=== PATIENT | female | born 1955 | race Caucasian/White ===

== ENCOUNTER 2017-05-16 21:39 | Inpatient (IN) ==
[2017-05-16] MEDS ORDERED: IOPAMIDOL 100 ML BOTTLE IV ONE (21:40)
[2017-05-16] MEDS ORDERED: 0.9 % SODIUM CHLORIDE 2,000 ML IV ONE (22:08)
[2017-05-16] MEDS ORDERED: ONDANSETRON 4 MG/2 ML VIAL IV ONE (22:08)
[2017-05-16 22:54] LABS: Basophils # (Auto) 0 K/mcL (0.0-0.3); Basophils % (Auto) 0.2 % (0.0-2.0); Eosinophils # (Auto) 0.1 K/mcL (0.0-0.7); Eosinophils % (Auto) 2.4 % (0.0-7.0); Granulocytes % (Auto) 14.9 % (38.0-78.0); Lymphocytes # (Auto) 2.5 K/mcL (1.5-4.8); Lymphocytes % (Auto) 67.1 % (15.5-49.0); Mean Corpuscular HGB Conc 33.9 g/dL (31.0-36.0); Mean Corpuscular Hemoglobin 28.9 pg (26.0-34.0); Monocytes # (Auto) 0.6 K/mcL (0.1-0.9); Monocytes % (Auto) 15.4 % (1.0-12.0); Platelet Count 226 K/mcL (140-440); RBC 5.08 M/mcL (4.00-5.20); Red Cell Distribution Width 12.8 % (11.5-14.5)
[2017-05-16 23:09] LABS: ALT/SGPT 12 U/l (0-40); Albumin/Globulin Ratio 1.1 (1.0-2.3); Alkaline Phosphatase 77 U/L (39-117); Amylase 82 U/L (28-100); Blood Urea Nitrogen 13 mg/dl (8-23); Lipase 87 U/L (7-60)
--- NOTE | 2017-05-16 23:29 | Emergency Department Note ---
General Adult HPI - General Chief complaint: Cold/Flu Symptoms Stated complaint: body aches, diarrhea and malaise Time Seen by Provider: 05/16/17 21:49 Source: patient Mode of arrival: ambulatory Limitations: no limitations - History of Present Illness HPI Narrative: 61-year-old female comes in [facility] from being ill over the last month. She reports that she has been sick with worsening diarrhea for the last 4 days along with nausea and vomiting. She feels weak diet dehydrated but is able to urinate some small amount. She notes a fever today which she took Excedrin. The temperature was 101.9. She feels achy and tired all over. Denies any rashes pedal edema shortness of breath. It is noted that she came in the ER on 04/27/2017 and was prescribed Ceftin and azithromycin for pneumonia and UTI. She states that she did not get better after that but instead got worse and developed this diarrhea-watery stool multiple episodes all night last night. - Related Data Home Medications Medication Instructions Recorded Confirmed cholecalciferol (vitamin D3) 1,000 1,000 unit PO QDAY cap 05/06/17 05/16/17 unit capsule cyanocobalamin (vit B-12) 1,000 1,000 mcg IM QMONTH 05/06/17 05/16/17 mcg/mL injection solution Previous Rx's Medication Instructions Recorded levothyroxine 100 mcg capsule 100 mcg PO QDAY #30 cap 05/06/17 lisinopril 2.5 mg tablet 2.5 mg PO QDAY #30 tab 05/06/17 Allergies Allergy/AdvReac Type Severity Reaction Status Date / Time ciprofloxacin [From Cipro] AdvReac Severe Nausea Verified 05/16/17 21:43 Review of Systems All systems ED: reviewed and negative except as stated. Past Medical History - Past Medical History Attestation: Yes: The following information was validated with the patient. Medical history: Reports: hypertension, obesity, thyroid disease, other (B12 deficiency, diverticulitis) Surgical history ED: Reports: hysterectomy, other (LAP-BAND; perforated colon with exploratory laparotomy; lithotripsy; carpal tunnel) - Social History smoking status: Former smoker Physical Exam Overweight female tearful in some acute distress secondary to her health condition. Normocephalic atraumatic. Conjunctive are clear sclerae nonicteric. No nasal discharge but some audible congestion. Oropharynx with dry buccal mucosa. Neck is supple without lymphadenopathy or thyromegaly. No carotid bruit. Heart is regular rate and rhythm no murmur appreciated. Lungs clear to auscultation bilaterally without wheezes rales rhonchi or respiratory distress. However she does have a productive cough occasionally. Abdomen is soft diffusely tender but no point tenderness rigidity peritoneal signs or guarding. Active bowel sounds. No pedal edema. +2 radial pulse. Alert oriented able to answer questions appropriately. Depressed mood Limitations: no limitations Course Vital Signs Temperature 99.5 F H 05/16/17 21:39 Pulse Rate 80 05/16/17 21:39 Respiratory Rate 16 05/16/17 21:39 Blood Pressure 122/79 05/16/17 21:39 Pulse Oximetry (%) 96 05/16/17 21:39 Temperature 99.5 F H 05/16/17 21:39 Pulse Rate 78 05/17/17 01:19 Respiratory Rate 16 05/16/17 21:39 Blood Pressure 93/63 05/17/17 01:01 Pulse Oximetry (%) 93 05/17/17 01:19 Medical Decision Making - Medical Records Medical records reviewed: Yes I reviewed the patient's medical records. - Lab Data Lab results reviewed: Yes I reviewed the patient's lab results. Result diagrams: 05/16/17 22:15 05/16/17 22:15 Lab Results 05/16/17 05/16/17 05/16/17 Range/Units 22:15 22:15 22:15 WBC 3.8 L (4.5-11.0) K/mcL RBC 5.08 (4.00-5.20) M/mcL Hgb 14.7 (12.0-15.0) g/dL Hct 43.2 (36.0-48.0) % POC Hct 42.0 (36.0-48.0) % MCV 85.0 (80.0-100.0) fL MCH 28.9 (26.0-34.0) pg MCHC 33.9 (31.0-36.0) g/dL RDW 12.8 (11.5-14.5) % Plt Count 226 (140-440) K/mcL MPV 8.4 (7.4-10.4) fL Gran % 14.9 L (38.0-78.0) % Lymph % (Auto) 67.1 H (15.5-49.0) % [place] % (Auto) 15.4 H (1.0-12.0) % Eos % (Auto) 2.4 (0.0-7.0) % Baso % (Auto) 0.2 (0.0-2.0) % Gran # 0.6 L* (1.8-8.0) K/mcL Lymph # (Auto) 2.5 (1.5-4.8) K/mcL [place] # (Auto) 0.6 (0.1-0.9) K/mcL Eos # (Auto) 0.1 (0.0-0.7) K/mcL Baso # (Auto) 0 (0.0-0.3) K/mcL VBG Lactic Acid 0.6 (0.5-2.2) mmol/L POC Sodium 143 (133-145) mmol/L Sodium 136 (133-145) mmol/L POC Potassium 3.8 (3.3-5.1) mmol/L Potassium 3.9 (3.3-5.1) mmol/L POC Chloride 102 (96-108) mmol/L Chloride 98 (96-108) mmol/L Carbon Dioxide 24 (22-30) mmol/L POC Total CO2 25 (22-30) mmol/L Anion Gap 14.0 (8-16) POC BUN 14 (8-23) mg/dl BUN 13 (8-23) mg/dl Creatinine 0.8 (0.6-1.1) mg/dl POC Creatinine 0.8 (0.6-1.1) mg/dl GFR Calculation 78 Glucose 94 (70-105) mg/dL POC Glucose 94 (70-105) mg/dL Calcium 9.0 (8.6-10.4) mg/dl POC WB Ioniz Calcium 1.15 L (1.16-1.32) mmol/L Total Bilirubin 0.3 (0.0-1.0) mg/dL AST 22 (0-37) U/l ALT 12 (0-40) U/l Alkaline Phosphatase 77 (39-117) U/L Total Protein 7.6 (5.9-8.4) gm/dL Albumin 4.0 (3.2-5.2) gm/dL Globulin 3.6 (2.2-3.7) gm/dL Albumin/Globulin Ratio 1.1 (1.0-2.3) Amylase 82 (28-100) U/L Lipase 87 H (7-60) U/L Influenza A (Rapid) Influenza B (Rapid) 05/16/17 Range/Units 22:20 WBC (4.5-11.0) K/mcL RBC (4.00-5.20) M/mcL Hgb (12.0-15.0) g/dL Hct (36.0-48.0) % POC Hct (36.0-48.0) % MCV (80.0-100.0) fL MCH (26.0-34.0) pg MCHC (31.0-36.0) g/dL RDW (11.5-14.5) % Plt Count (140-440) K/mcL MPV (7.4-10.4) fL Gran % (38.0-78.0) % Lymph % (Auto) (15.5-49.0) % [place] % (Auto) (1.0-12.0) % Eos % (Auto) (0.0-7.0) % Baso % (Auto) (0.0-2.0) % Gran # (1.8-8.0) K/mcL Lymph # (Auto) (1.5-4.8) K/mcL [place] # (Auto) (0.1-0.9) K/mcL Eos # (Auto) (0.0-0.7) K/mcL Baso # (Auto) (0.0-0.3) K/mcL VBG Lactic Acid (0.5-2.2) mmol/L POC Sodium (133-145) mmol/L Sodium (133-145) mmol/L POC Potassium (3.3-5.1) mmol/L Potassium (3.3-5.1) mmol/L POC Chloride (96-108) mmol/L Chloride (96-108) mmol/L Carbon Dioxide (22-30) mmol/L POC Total CO2 (22-30) mmol/L Anion Gap (8-16) POC BUN (8-23) mg/dl BUN (8-23) mg/dl Creatinine (0.6-1.1) mg/dl POC Creatinine (0.6-1.1) mg/dl GFR Calculation Glucose (70-105) mg/dL POC Glucose (70-105) mg/dL Calcium (8.6-10.4) mg/dl POC WB Ioniz Calcium (1.16-1.32) mmol/L Total Bilirubin (0.0-1.0) mg/dL AST (0-37) U/l ALT (0-40) U/l Alkaline Phosphatase (39-117) U/L Total Protein (5.9-8.4) gm/dL Albumin (3.2-5.2) gm/dL Globulin (2.2-3.7) gm/dL Albumin/Globulin Ratio (1.0-2.3) Amylase (28-100) U/L Lipase (7-60) U/L Influenza A (Rapid) Presumed negative Influenza B (Rapid) Presumed negative Urinalysis [id number] dipstick shows specific gravity 1.030 otherwise normal - Radiology Data Radiology results reviewed: Yes I reviewed the patient's radiology results. 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 X-ray of the abdomen and chest are ordered along with labs and a flu swab. Urinalysis shows concentrated urine but no evidence of infection X-rays are unrevealing but laboratory shows neutropenia. Flu swabs are negative. I discussed the neutropenia with Dr. Coleman, oncologist special education secretary. He advised me to search for the source of the fever and go ahead and treat with antibiotics because of the neutropenia-started Zosyn. CT scan of the abdomen pelvis is ordered She was able to give us a stool sample -watery diarrhea -so C. difficile testing is ordered CT scan of the abdomen and pelvis with contrast shows an intact lap band, marked esophagitis, likely colitis and splenomegaly. There is a small pulmonary nodule that will require follow-up as well. She received 2 L IV normal saline fluid and third was ordered. I did order a dose of IV Protonix for the esophagitis Because of the patient's neutropenia and fever she is at high risk of sepsis; further complicating is her nausea vomiting and diarrhea which are requiring IV fluids and Zofran, so she requires inpatient care with IV antibiotics and medicine. I discussed the case with Dr. Gong, hospitalist, he agreed to accept the patient for further inpatient care. C. difficile is pending Disposition: Xfer As Inpt ([facility]) Condition: Serious Referrals: Wilfred Ferguson PA-C [Primary Care Provider] -
[2017-05-16] MEDS ORDERED: PIPERACILLIN SODIUM/TAZOBACTAM 3.375 GM in DEXTROSE 5% IN WATER 50 ML IV ONE (23:33)
[2017-05-17] MEDS ORDERED: 0.9 % SODIUM CHLORIDE 1,000 ML IV ONE ×5 (01:13→03:01)
[2017-05-17] MEDS ORDERED: PANTOPRAZOLE 40 MG VIAL IV ONE (01:39)
[2017-05-17] MEDS ORDERED: PIPERACILLIN SODIUM/TAZOBACTAM 3.375 GM in DEXTROSE 5% IN WATER 50 ML IV SCH (03:00)
[2017-05-17] MEDS ORDERED: DEXTROSE 5%-LR W/20MEQ KCL 1,000 ML IV SCH (03:00)
[2017-05-17] MEDS ORDERED: NALOXONE HCL 0.4 MG/ML VIAL IV PRN (03:01)
[2017-05-17] MEDS ORDERED: oxyCODONE HCL 5 MG TABLET PO PRN (03:01)
[2017-05-17] MEDS ORDERED: ONDANSETRON 4 MG/2 ML VIAL IV PRN (03:01)
[2017-05-17] MEDS: DEXTROSE 5%-LR W/20MEQ KCL 1,000 ML IV SCH ×4 (05:17→19:18)
[2017-05-17] MEDS: 0.9 % SODIUM CHLORIDE 10 ML SYRINGE IV SCH ×3 (05:19→21:43)
[2017-05-17 05:52] LABS: ALT/SGPT 11 U/l (0-40); Albumin 3.2 gm/dL (3.2-5.2); Albumin/Globulin Ratio 1.2 (1.0-2.3); Alkaline Phosphatase 69 U/L (39-117); Bilirubin,Direct < 0.2 mg/dL (0.0-0.3); Blood Urea Nitrogen 11 mg/dl (8-23); C-Reactive Protein 0.6 mg/dl (0.0-0.8); Gamma Glutamyl Transpeptidase 18 U/L (5-36); Uric Acid 4.9 mg/dL (2.5-8.0)
[2017-05-17 06:07] LABS: Vitamin B12 453.3 pg/ml (232-1245)
[2017-05-17 06:30] LABS: Basophils # (Auto) 0 K/mcL (0.0-0.3); Basophils % (Auto) 0.2 % (0.0-2.0); Eosinophils # (Auto) 0.1 K/mcL (0.0-0.7); Eosinophils % (Auto) 2.5 % (0.0-7.0); Granulocytes % (Auto) 17.8 % (38.0-78.0); Lymphocytes # (Auto) 2.4 K/mcL (1.5-4.8); Lymphocytes % (Auto) 68.5 % (15.5-49.0); Mean Cell Volume 86.8 fL (80.0-100.0); Mean Corpuscular HGB Conc 33.9 g/dL (31.0-36.0); Mean Corpuscular Hemoglobin 29.4 pg (26.0-34.0); Monocytes # (Auto) 0.4 K/mcL (0.1-0.9); Platelet Count 159 K/mcL (140-440); RBC 4.07 M/mcL (4.00-5.20); Red Cell Distribution Width 13.5 % (11.5-14.5)
[2017-05-17 07:10] LABS: Erythrocyte Sedimentation Rate 19 mm/hr (0-20)
--- NOTE | 2017-05-17 08:09 | XRay Report ---
HISTORY: Reason for Exam: diarrhea, n/v FINDINGS: Patient has a gastric band at the level of the gastroesophageal junction. There is an infusion port in the midline of the abdomen. The bowel gas pattern is normal without evidence of obstruction or ileus. No free intra-abdominal air is present. Hiatus hernia is present. There is arthritis in the lower lumbar spine. Several old healed bilateral rib fractures are present. IMPRESSION: Normal exam Interpreted and Authenticated by: Padilla Patino 05/17/17
--- NOTE | 2017-05-17 08:11 | XRay Report ---
HISTORY: Reason for Exam:fever FINDINGS: There is a thin band of scar or discoid atelectasis in the inferior segment of lingula. There is no evidence of pneumonia, mass, congestive heart failure or pleural effusion. The heart size is normal. A hiatus hernia is present which contains a small air-fluid level. IMPRESSION: Scar versus discoid atelectasis at the left lung base and no evidence of pneumonia Interpreted and Authenticated by: Padilla Patino 05/17/17
--- NOTE | 2017-05-17 08:27 | Cat Scan Report ---
CLINICAL INFORMATION: Reason for Exam:nausea vomiting diarrhea, fever, neutropenia COMPARISON: 12/11/10 TECHNIQUE: Following injection of intravenous contrast the patient was scanned during the portal venous phase from the diaphragm through the symphysis pubis. Sagittal and coronal reformats were created.. FINDINGS: The lateral basal segment right lower lobe there is a 6.5 mm pulmonary nodule. This has not enlarged since 12/11/10 and is most likely a granuloma. There are linear bands of scar tissue in the medial basal segment right lower lobe. There is a gastric band at the level of the cardia of the stomach. Above the band and within the lower thorax there is a distended segment of bowel which is either a hiatus hernia or a abnormally dilated esophagus. Within the lumen of this distended segment of bowel there is a complex liquefied material. Some of it has high attenuation. It has higher density than the contrast in the aorta and is therefore more likely radiopaque ingested material rather than actively extravasating blood. The wall of this abnormal segment of esophagus or hiatus hernia of the stomach measures up to 9 mm in thickness. There is no hemorrhage or inflammation in the adjacent posterior mediastinum.. In the right lobe of the liver there is a 5 x 6 mm low-attenuation structure with a similar appearing 4 mm low-attenuation structure beneath the capsule anteriorly in the lateral segment of the left lobe. These are probably small cysts with partial volume averaging. The one in the left lobe was present in 2010. The gallbladder is partially contracted. The bile ducts are nondilated. The spleen is within upper limits of normal in size and is homogeneous. There is no evidence of mass or inflammation in the pancreas. The adrenals are normal. A 1 mm nonobstructing calyceal stone is present in the middle third of the right kidney. There is another 1 mm calyceal stone in the middle third of left kidney. A 1.7 cm exophytic simple cyst is seen anteriorly in the posterior to the left kidney. There is no evidence of renal mass or hydronephrosis on either side. There are multiple diverticula in the descending and sigmoid colon. There is no acute diverticulitis. The wall of the colon at the level of the diverticula is uniformly mildly thickened. Small bowel pattern is normal. The appendix is noninflamed. The uterus and ovaries are surgically absent. Urinary bladder is decompressed. There is degenerative disc disease and arthritis at several levels in the thoracic and lumbar spine. The greatest degeneration is at L5-S1. There is an old mild compression fracture involving the superior endplate of L2. IMPRESSION: Diverticulosis of the descending and sigmoid colon but without acute diverticulitis or bowel obstruction. Hiatus hernia versus abnormally dilated distal esophagus. The wall of this segment of bowel is abnormally thickened, measuring up to 9 mm. This could be due to inflammation or tumor. Endoscopy be helpful for further workup. Interpreted and Authenticated by: Padilla Patino 05/17/17
[2017-05-17] MEDS: HEPARIN 5,000 UNIT/ML VIAL SQ SCH ×2 (08:54→21:43)
[2017-05-17] MEDS: FAMOTIDINE/PF 20 MG/2 ML VIAL IV SCH ×2 (08:54→19:18)
[2017-05-17 09:21] LABS: Complement C3 72.2 mg/dl (90-180)
[2017-05-17] MEDS: ACETAMINOPHEN 325 MG TABLET PO PRN ×2 (11:47→21:11)
[2017-05-17] MEDS: PIPERACILLIN SODIUM/TAZOBACTAM 3.375 GM in DEXTROSE 5% IN WATER 50 ML IV SCH ×2 (11:47→17:58)
--- NOTE | 2017-05-17 14:27 | Internal Medicine Consult Note ---
Medical - CN: HPI - Data of Consult Patient: new to practice Consult date: 05/17/17 Requesting Physician: Fili Gong Primary Care Provider: Wilfred Ferguson Family Provider: Alec Hall - Consult Narrative Reason for consult: nausea, vomiting, diarrhea History of present illness: Ms. Maldonado is a 61 year old F with a remote history of lap band who presents for evaluation of malaise, myalgias, fatigue and diarrhea. In late March, she developed fatigue, malaise, myalgias and headache, which she treated with Excedrin. She felt so ill that she ultimately presented to the ER and was treated for PNA and UTI with azithromycin and Ceftin without any improvement. She developed intermittent diarrhea, which has significantly worsened over the last 4 days, now having up to 24 liquid BMs day with nocturnal stooling and fecal incontinence. C difficile assay returned negative. ANC 600. She has been using Excedrin for mylagias. She underwent lap band [address] Fulton and lost 180lbs, which she has maintained. She typically has dysphagia with eating solids and vomits up the bolus most of the time. She finds drinking a carbonated beverage helpful. Despite her symptoms, her weight has remained stable. She is said to have B12 deficiency and was on injections but discontinued these several years ago after losing her PCP. CC: Fili Gong - Gastrointestinal Gastrointestinal: Present: as per HPI Medical - CN: PMH Medical history: Hypertension, hypothyroidism, kidney stones Surgical history: hysterectomy, lap band, perforated colon with exploratory laparotomy, carpal tunnel release, lithotripsy. Social history: , retired. Use to live in the [facility] and relocated to [place]. Was unable to reestablish care with PCP when she moved back. Smoking status: Former smoker Alcohol use: none Medical - CN: Meds Home Medications Medication Instructions Recorded Confirmed Type cholecalciferol (vitamin D3) 1,000 1,000 unit PO QDAY cap 05/06/17 05/17/17 History unit capsule cyanocobalamin (vit B-12) 1,000 1,000 mcg IM QMONTH 05/06/17 05/17/17 History mcg/mL injection solution levothyroxine 100 mcg capsule 100 mcg PO QDAY #30 cap 05/06/17 05/17/17 Rx lisinopril 2.5 mg tablet 2.5 mg PO QDAY #30 tab 05/06/17 05/17/17 Rx Allergies Allergy/AdvReac Type Severity Reaction Status Date / Time ciprofloxacin [From Cipro] AdvReac Severe Nausea Verified 05/16/17 21:43 Medical - CN: Exam - Constitutional Vitals: Temp Pulse Resp BP Pulse Ox 98.3 F 66 20 105/67 92 05/17/17 12:00 05/17/17 12:00 05/17/17 12:00 05/17/17 12:00 05/17/17 12:00 General appearance: average body habitus, cooperative, no acute distress - Head Head exam: Present: atraumatic, normal inspection - Neck Neck exam: Absent: lymphadenopathy, thyromegaly - Respiratory Respiratory exam: Present: normal respiratory exam, CTAB. Absent: accessory muscle use - Cardiovascular Cardiovascular exam: Present: normal rate and rhythm, RRR. Absent: systolic murmur - GI/Abdominal GI/Abdominal exam: Present: normal bowel sounds, soft. Absent: hernia, mass, organomegaly, tenderness - Neurological Exam Neurological exam: Present: alert, oriented X3 - Psychiatric Psychiatric exam: Present: normal affect, normal mood Additional comments: a little tearful when describing symptoms Medical - CN: Result - Labs CBC & Chem 7: 05/17/17 03:20 05/17/17 03:20 Labs: Short CBC 05/16/17 05/17/17 Range/Units 22:15 03:20 WBC 3.8 L 3.5 L (4.5-11.0) K/mcL Hgb 14.7 12.0 (12.0-15.0) g/dL Hct 43.2 35.3 L (36.0-48.0) % Plt Count 226 159 (140-440) K/mcL BMP 05/16/17 05/17/17 22:15 03:20 Sodium 136 139 Potassium 3.9 3.8 Chloride 98 107 Carbon Dioxide 24 24 BUN 13 11 Creatinine 0.8 0.6 Glucose 94 83 Calcium 9.0 7.5 L Liver Function 05/16/17 05/17/17 Range/Units 22:15 03:20 Total Bilirubin 0.3 0.2 (0.0-1.0) mg/dL Direct Bilirubin < 0.2 (0.0-0.3) mg/dL GGT 18 (5-36) U/L AST 22 18 (0-37) U/l ALT 12 11 (0-40) U/l Alkaline Phosphatase 77 69 (39-117) U/L Albumin 4.0 3.2 (3.2-5.2) gm/dL Medical - CN: A/P (1) Nausea vomiting and diarrhea Status: Chronic Assessment and plan: CT revealed an abnormal esophagus with possible hiatal hernia vs dilated esophagus, which contained food. Thickening of the descending colon and sigmoid colon were also seen on CT. C. difficile was negative. Crohn's would be a unifying diagnoses. Infectious colitis is a possibility as is reflux esophagitis from frequent vomiting. We will proceed with EGD and colonoscopy. Pt will be given a low volume prep as she is unlikely to be able to tolerate 4L [place] with her lap band.
--- NOTE | 2017-05-17 17:57 | Internal Med History&Physical ---
Medical - H&P: HPI Patient information: Note initiated : 05/17/17 at 5:55 pm Service Date, if different from initiated Date: [] Patient: Alice Maldonado 61 y/o F admitted on 05/17/17 for body aches, diarrhea and malaise. Chief Complaint: [] History of present illness: Ms. Maldonado is a 61 year old Female with h/o lap band over 10 yrs ago, presented to the ER with complaints of not feeling well, nausea, vomiting, diarrhea fever for the last 3 weeks, The patient had been visiting the [facility] where she started developing the symptoms initially. Started with cough, fever, fatigue, malaise, not wanting to eat or drink much. She had presented to the emergency room here at [facility] later on 27 of April, I believe she was diagnosed as having the urinary tract infection as well as a pneumonia. The patient was given Ceftin and azithromycin. The patient notes that her symptoms improved her a couple of days somewhat and then she began to feel the symptoms back up again. She notes extreme tiredness, nausea, vomiting, inability to tolerate by mouth, and diarrhea, severe watery, not sure that is some blood in there. No mucous. Abdomen is sore. Does not complain of any specific location of abdominal pain. The patient notes that she has been febrile over the last day or 2 and therefore presented to the emergency room for further evaluation. In the ER, the patient was noted to be febrile 99.2, dehydrated, her labs showed neutropenia with an absolute neutrophil count of 600. The rest of the lab work was unremarkable. Patient underwent a CT scan of the abdomen and pelvis which showed some thickening of the distal esophageal region, questionable and possible colitis. An enteritis. The patient had headache and dizziness, no changes in visual symptoms, no hearing issues, no difficulty in swallowing, she does have chronic nausea related to her gastric banding procedure. The patient denies any urinary complaints, denies any skin rashes or joint pains. Denies any psychiatric complaints. Given that the patient had significant neutropenia, fever, and possible enteritis-like picture. She was admitted to the hospital for further management. The patient's lab work remained unchanged, her HIV is negative, her pathology review of smear is negative for any blast cells, a C3 and C4 levels are low, but in his screen is negative. Asuncion-Montano while this is pending. GI was consulted for evaluation of thickening of the lower part of the esophagus as well as possible colitis. They plan to do an EGD scope. He possibly colonoscopy. All systems: reviewed and no additional remarkable complaints except as stated ( as per HPI) Medical - H&P: PMH Medical history: Medical History (Last Updated 05/17/17 @ 10:02 by Umm Montes) History of tobacco use (Chronic) Bowel disease (Chronic) Thyroid disease (Chronic) Osteoporosis (Chronic) Liver disease (Chronic) Kidney stones (Chronic) Hypertension, essential (Chronic) Heart trouble (Chronic 04/22/17) Lung disorder (Chronic) Arthritis (Chronic) Acid reflux (Chronic) Surgical history: Past Surgical History (Last Updated 05/17/17 @ 09:53 by Umm Montes) H/O colonoscopy (Chronic) H/O lithotripsy (Chronic) H/O: hysterectomy (Chronic) Hx of tonsillectomy (Chronic) Status post gastric banding surgery (Chronic) Pertinent family history: Family History (Last Updated 05/17/17 @ 09:56 by Umm Montes) Other No pertinent family history Medical - H&P: Meds Home Medications Medication Instructions Recorded Confirmed Type cholecalciferol (vitamin D3) 1,000 1,000 unit PO QDAY cap 05/06/17 05/17/17 History unit capsule cyanocobalamin (vit B-12) 1,000 1,000 mcg IM QMONTH 05/06/17 05/17/17 History mcg/mL injection solution levothyroxine 100 mcg capsule 100 mcg PO QDAY #30 cap 05/06/17 05/17/17 Rx lisinopril 2.5 mg tablet 2.5 mg PO QDAY #30 tab 05/06/17 05/17/17 Rx Allergies Allergy/AdvReac Type Severity Reaction Status Date / Time ciprofloxacin [From Cipro] AdvReac Severe Nausea Verified 05/16/17 21:43 Medical - H&P: Exam - Constitutional Vitals: Temp Pulse Resp BP Pulse Ox 98.3 F 66 20 105/67 92 05/17/17 12:00 05/17/17 12:00 05/17/17 12:00 05/17/17 12:00 05/17/17 12:00 Exam: GENERAL: The patient is a well-developed, well-nourished in no apparent distress. Is alert and oriented x3. VITAL SIGNS: Reviewed and as noted elsewhere. HEENT: Head is normocephalic and atraumatic. Extraocular muscles are intact. Pupils are equal, round, and reactive to light. Nares appeared normal. Mouth appears any without lesions. Mucous membranes are dry NECK: Normal to inspection, Supple, No lymphadenopathy or thyromegaly. LUNGS: Air entry equal on both sides, no wheezing, crackles or rhonchi noted. No accessory muscles of respiration HEART: Regular rate and rhythm normal, S1 and S2 heard, no Gallop, S3 or Rub Noted, No Gross murmur heard. ABDOMEN: Soft, nontender, and nondistended. Positive bowel sounds. No hepatosplenomegaly was noted. EXTREMITIES: No cyanosis, clubbing, rash, lesions or edema. NEUROLOGIC: Cranial nerves II through XII are grossly intact. Motor and Sensory System Grossly Intact PSYCHIATRIC: Normal affect, Normal Mood. Appropriate Behavior. SKIN: No ulceration or wounds noted, No jaundice, No rash noted. Medical - H&P: Reslt - Labs CBC & Chem 7: 05/17/17 03:20 05/17/17 03:20 Labs: Short CBC 05/16/17 05/17/17 Range/Units 22:15 03:20 WBC 3.8 L 3.5 L (4.5-11.0) K/mcL Hgb 14.7 12.0 (12.0-15.0) g/dL Hct 43.2 35.3 L (36.0-48.0) % Plt Count 226 159 (140-440) K/mcL BMP 05/16/17 05/17/17 22:15 03:20 Sodium 136 139 Potassium 3.9 3.8 Chloride 98 107 Carbon Dioxide 24 24 BUN 13 11 Creatinine 0.8 0.6 Glucose 94 83 Calcium 9.0 7.5 L Liver Function 05/16/17 05/17/17 Range/Units 22:15 03:20 Total Bilirubin 0.3 0.2 (0.0-1.0) mg/dL Direct Bilirubin < 0.2 (0.0-0.3) mg/dL GGT 18 (5-36) U/L AST 22 18 (0-37) U/l ALT 12 11 (0-40) U/l Alkaline Phosphatase 77 69 (39-117) U/L Albumin 4.0 3.2 (3.2-5.2) gm/dL Medical - H&P: A/P - Narrative A/P Narrative: A/P Neutropenia: etiology of neutropenia is uncertain at this point, workup for nutritional deficiencies like B12, and folate is negative, TSH is negative, HIV is negative. Asuncion-Montano virus is pending. low C3 and low C4, raised a concern about possible lupus. However SILVER is negative and patient does not have any other rheumatological feature,the patient has normal ESR and CRP. At this pointit's likely that this is related to some viral illness as the patient' s ANC count was normal. 3 weeks ago. We will monitor closely for now. We'll consult hematology if patient continues to drop his counts. it's very likely that the patient had an adverse drug reaction resulting in neutropenia, since the patient was given a cephalosporin as well as an azithromycin, both of which can potentially cause neutropenia, its difficult to know which. Will monitor for now. Enteritis-likely viral enteritis, patient denies any history that would suggest for poisoning and I would not expect food poisoning to last this long. viral enteritis. Also should not be expected to last this long. I'm hoping that the colonoscopy, EGD scope. He will shed some light. Appreciate GI input. Cdiff was neative. Patient is presently on zosyn. Dehydration-due to poor oral intake. IV fluids. Resume oral diet as tolerated. Treat nausea and vomiting symptomatically. Gastric banding procedure-B12, folic acid level is in the normal range. Hypertension-BP on the lower end. Hold home blood pressure medication, lisinopril. DVT hep sq Diet regular Full code Medical - H&P: Qual - Stroke Symptom Onset Unknown: No - VTE Deep Vein Thrombosis/Pulmonary Embolism Present on Admission: No Social History - Social History marital status: other: Children-2 - Tobacco smoking status: Former smoker - Alcohol alcohol intake frequency: does not drink - Substance use substance use type: does not use
[2017-05-17 20:30] LABS: Appearance,Urine CLEAR; Bacteria,Urine 0 /hpf (0); Bilirubin,Urine NEG (NEG); Color,Urine COLORLESS; Glucose,Urine (UA) NEGATIVE (NEG); Leukocyte Esterase,Urine NEG /uL (NEG); Protein,Urine NEG (NEG); Specific Gravity,Urine 1.009 (1.000-1.035); Urine Blood NEG mg/dL (<0.03); Urine RBC 0 /hpf (0-1); Urine Squamous Epithelial Cell 0 /hpf (0-4); Urine WBC < 1 /hpf (0-4); Urobilinogen,Urine NEG (NEG)
[2017-05-18] MEDS: PIPERACILLIN SODIUM/TAZOBACTAM 3.375 GM in DEXTROSE 5% IN WATER 50 ML IV SCH ×3 (00:14→11:47)
[2017-05-18] MEDS: 0.9 % SODIUM CHLORIDE 10 ML SYRINGE IV SCH ×2 (05:51→13:43)
[2017-05-18 05:59] LABS: Complement C3 88.4 mg/dl (90-180)
[2017-05-18] MEDS ORDERED: KETAMINE 10 MG/ML ML IV PRN (07:34)
[2017-05-18] MEDS ORDERED: PROPOFOL 200 MG/20 ML VIAL IV SCH (07:45)
[2017-05-18] MEDS ORDERED: MIDAZOLAM 2 MG/2 ML VIAL IV SCH (07:45)
[2017-05-18 08:33] LABS: Basophils # (Auto) 0 K/mcL (0.0-0.3); Basophils % (Auto) 0.2 % (0.0-2.0); Eosinophils # (Auto) 0.1 K/mcL (0.0-0.7); Eosinophils % (Auto) 3.8 % (0.0-7.0); Granulocytes % (Auto) 12.8 % (38.0-78.0); Lymphocytes # (Auto) 2.4 K/mcL (1.5-4.8); Lymphocytes % (Auto) 72.9 % (15.5-49.0); Mean Cell Volume 85.7 fL (80.0-100.0); Mean Corpuscular HGB Conc 33.7 g/dL (31.0-36.0); Mean Corpuscular Hemoglobin 28.8 pg (26.0-34.0); Monocytes # (Auto) 0.3 K/mcL (0.1-0.9); Monocytes % (Auto) 10.3 % (1.0-12.0); Platelet Count 170 K/mcL (140-440); RBC 4.46 M/mcL (4.00-5.20); Red Cell Distribution Width 13.6 % (11.5-14.5)
[2017-05-18 08:43] LABS: ALT/SGPT 7 U/l (0-40); Albumin 3.7 gm/dL (3.2-5.2); Albumin/Globulin Ratio 1.2 (1.0-2.3); Alkaline Phosphatase 62 U/L (39-117); Bilirubin,Direct < 0.2 mg/dL (0.0-0.3); Blood Urea Nitrogen 3 mg/dl (8-23); Gamma Glutamyl Transpeptidase 22 U/L (5-36); Uric Acid 3.3 mg/dL (2.5-8.0)
[2017-05-18] MEDS: FAMOTIDINE/PF 20 MG/2 ML VIAL IV SCH (09:17)
[2017-05-18] MEDS: HEPARIN 5,000 UNIT/ML VIAL SQ SCH (09:17)
[2017-05-18] MEDS ORDERED: PROPOFOL 20 ML IV ONE (11:37)
[2017-05-18] MEDS ORDERED: MIDAZOLAM 2 MG/2 ML VIAL ONE (11:37)
[2017-05-18] MEDS ORDERED: LORazepam 2 MG/ML VIAL ONE (13:41)
[2017-05-18] MEDS ORDERED: LORazepam 2 MG/ML VIAL IV ONE (13:45)
[2017-05-18] MEDS ORDERED: 0.9 % SODIUM CHLORIDE 250 ML IV ONE (17:15)
--- NOTE | 2017-05-18 17:47 | Transfer Summary ---
Transfer Discharge Sum: Prov Patient information: Note initiated : 05/18/17 at 5:44 pm Service Date, if different from initiated Date: [] Patient: Alice Maldonado 61 y/o F admitted on 05/17/17 for Body Aches, Diarrhea and Malaise. Chief Complaint: [] Date of admission: 05/17/17 02:59 Discharge Date: 05/18/17 Primary care physician: Wilfred Ferguson Admitting clinician: Fili Gong Consults: 05/17/17 01:43 Consult to Physician [CONS] Stat Comment: Consulting Provider: Fili Gong Reason For Exam: Physician to Consult Discharging clinician: Fili Gong Receiving physician/facility: Dr GARSIA Hospitalist Dr Pulido: Senior Project Manager Engineering. Transfer Discharge Sum: Diag - Discharge Diagnosis (1) Neutropenia Status: Chronic Transfer Discharge Sum: Med - Medications Active and Home Medications: Home Medications cholecalciferol (vitamin D3) 1,000 unit capsule 1,000 unit PO QDAY cap [History Confirmed 05/17/17] cyanocobalamin (vit B-12) 1,000 mcg/mL injection solution 1,000 mcg IM QMONTH [History Confirmed 05/17/17] levothyroxine 100 mcg capsule 100 mcg PO QDAY #30 cap 05/06/17 [Rx Confirmed ] lisinopril 2.5 mg tablet 2.5 mg PO QDAY #30 tab 05/06/17 [Rx Confirmed 05/17/17] Active Medications Acetaminophen (Tylenol) 650 mg PO Q6HP PRN PRN Reason: PAIN/FEVER > 101 Last Admin: 05/17/17 21:11 Dose: 650 mg Famotidine (Pepcid) 20 mg IV Q12 [facility] Last Admin: 05/18/17 09:17 Dose: 20 mg Heparin Sodium (Porcine) (Heparin) 5,000 unit SQ Q12 MEETA Last Admin: 05/18/17 09:17 Dose: Not Given Piperacillin Sod/Tazobactam (Sod 3.375 gm/ Dextrose) 50 mls @ 100 mls/hr IV Q6H [facility] Last Infusion: 05/18/17 12:31 Dose: Infused Naloxone HCl (Narcan) 0.1 mg IV Q2MIN PRN PRN Reason: Opiate Reversal Ondansetron HCl (Zofran) 4 mg IV Q6HP PRN PRN Reason: Nausea And Vomiting Last Admin: 05/17/17 19:18 Dose: 4 mg Oxycodone HCl (Roxicodone) 5 mg PO Q4HP PRN PRN Reason: PAIN LEVEL 3-6 Sodium Chloride (Saline Flush) 10 ml IV Q8 MEETA Last Admin: 05/18/17 13:43 Dose: 10 ml Transfer Discharge Sum: Hosp Hospital course: Ms. Maldonado is a 61 year old Female with h/o lap band over 10 yrs ago, presented to the ER with complaints of not feeling well, nausea, vomiting, diarrhea fever for the last 3 weeks. The patient symptoms started with cough, fever, fatigue, malaise, and poor appetite. She had presented to the emergency room here at [facility] later on 27 of April, I believe she was diagnosed as having the urinary tract infection as well as a pneumonia. The patient was given Ceftin and azithromycin. The patient notes that her symptoms improved her a couple of days somewhat and then she began to feel the symptoms back up again. She notes extreme tiredness, nausea, vomiting, inability to tolerate by mouth, and diarrhea, severe watery, not sure that is some blood in there. No mucous. Abdomen is sore. Does not complain of any specific location of abdominal pain. The patient notes that she has been febrile over the last day or 2 and therefore presented to the emergency room for further evaluation. In the ER, the patient was noted to be febrile 99.2, dehydrated, her labs showed neutropenia with an absolute neutrophil count of 600. The rest of the lab work was unremarkable. Patient underwent a CT scan of the abdomen and pelvis which showed some thickening of the distal esophageal region, questionable and possible colitis, and enteritis. Given that the patient had significant neutropenia, fever, and possible enteritis-like picture. She was admitted to the hospital for further management. the patient was treated with IV antibiotics, just IV Zosyn given GI symptoms. The patient clinically responded. Did not have any high-grade fevers but had persistent low-grade temperatures. Clinically, she was feeling a bit better. Her lab, however, showed worsening neutropenia. Her absolute neutrophil count dropped to 400. This was 600 at the time of admission. Her absolute neutrophil count on 27 of April was 6300, the patient has negative, HIV negative, influenza, her Pap smear is unremarkable except for few large platelets. Normal ESR, normal CRP, antinuclear antibody screen is negative, she did have low C3 as well as C4 on day of admission, which improved today, however, are still slightly lower than the normal limits. HIV is negative, and her EBV antigen is pending. the etiology of neutropenia could be viral, However Drug-induced neutropenia is also possible given temporal association between azithromycin and Ceftin use and normal neutrophil count on April 27. Given the worsening neutropenia. I called the on-call banana expert, Dr. PULIDO, who advised a bone marrow biopsy would be needed. I spoke with the radiologist here to see if he would perform a biopsy. However, the radiologist noted that he has not performed a bone marrow biopsy in the past. The patient will therefore be transferred to [facility] for further management of her neutropenia. GI was consulted for evaluation of thickening of the lower part of the esophagus as well as possible colitis. the coloscopy was negative, EGD showed dilated esophagus but no perforation, no pus. This is related to her gastric banding procedure. - Time Spent with Patient Total time spent providing and/or coordinating transfer services: Greater than 30 minutes Transfer Discharge Sum: Exam - Constitutional Vitals: Vital Signs Temp Pulse Pulse Resp BP BP Pulse Ox 05/18/17 17:40 58 L 16 101/63 100 05/18/17 17:35 45 L 14 121/45 100 05/18/17 17:30 47 L 14 105/50 100 05/18/17 17:25 47 L 12 84/42 100 05/18/17 17:20 47 L 14 86/45 100 05/18/17 17:15 50 L 12 74/37 100 05/18/17 17:10 59 L 14 108/48 99 05/18/17 16:34 55 L 16 161/68 100 05/18/17 16:00 97.1 F 20 127/79 96 05/18/17 11:36 96.7 F L 18 131/80 96 05/18/17 06:43 99.2 F H 18 131/77 95 05/18/17 02:53 97.5 F 51 L 12 127/76 95 05/18/17 00:00 98.1 F 51 L 14 129/75 95 05/17/17 20:00 97.7 F 55 L 12 136/74 95 Intake and Output 05/18/17 05/18/17 05/18/17 05:59 13:59 21:59 Intake Total 1005 / 1005 100 / 100 Output Total 800 / 800 1000 / 1000 Balance 205 / 205 -900 / -900 Intake: IV 50 / 50 100 / 100 Zosyn 3.375 gm In Dextrose 5% 50 / 50 100 / 100 in Water 50 ml @ 100 mls/hr IV Q6H [facility] Rx#:[id number] Oral 955 / 955 Output: Void Amount 200 / 200 Urine/Stool Mix 600 / 600 1000 / 1000 Other: Stool Size Small Stool Color Yellow Yellow Stool Consistency Watery Liquid # Voids 1 # Bowel Movements 1 # of times incontinent of 1 Bowels Additional comments: Constitutional; Afebrile, cooperative, alert, not in distress. Eyes- No icterus, , No periorbital swelling Ears- Ext ear normal, hearing normal to conversation. Neck- Midline trachea, supple Respiratory system: Air Entry equal on both sides, No crackles or wheezing, no rhonchi. CVS- Rate rhythm regular, S1,S2 heard, no gallop, no rub. Abdomen- Soft nontender abdomen, no organomegaly, no tenderness, no guarding or rigidity, ASSISTANT TO THE DEAN- AOOx3, moving all extremities, no gross focal deficit noted. Transfer Discharge Sum: Data Procedures and tests throughout hospitalization: Pending Orders 05/16/17 21:49 Influenza A&B POC (ED) NOW 05/16/17 22:08 Urine dipstick, poc measuremen NOW 05/17/17 01:43 Consult to Physician [CONS] Stat 05/17/17 02:37 Resuscitation Status Routine 05/17/17 03:01 Case Management Referral .Routine Admit as Inpatient Routine Condition Routine IV Insertion/Management QSHIFT Intake and Output qshiftio Notify Provider .routine VTE Risk: Assessment ONCE Vital Signs Q4 Weight Monitoring QHS Acetaminophen [Tylenol] 650 mg PO Q6HP PRN Naloxone HCl [Narcan] 0.1 mg IV Q2MIN PRN Ondansetron [Zofran] 4 mg IV Q6HP PRN oxyCODONE HCL [Roxicodone] [address] Q4HP PRN RD to Adjust Diet/Supplements as Needed Routine Incentive Spirometry Assess/Tx Q2HWA Oxygen Order .Routine 05/17/17 03:05 Blood Culture Urgent 05/17/17 06:00 0.9 % Sodium Chloride [Saline Flush] 10 ml IV Q8 05/17/17 08:10 EBV Early Antigen Stat 05/17/17 09:00 Famotidine/Pf [Pepcid] 20 mg IV Q12 Heparin 5,000 unit SQ Q12 05/17/17 12:00 Piperacillin Sodium/Tazobactam [Zosyn] 3.375 gm Dextrose 5% in Water 50 ml IV Q6H 05/17/17 15:33 Clear Liquid Diet 05/18/17 07:34 Communication order NOW Communication order NOW Communication order NOW Enema administration PRN IV Insertion/Management .ROUTINE Vital Signs .POST-OP RECOVERY Vital Signs .ROUTINE 05/18/17 09:00 Notify ONCE 05/19/17 04:00 Complete Blood Count DAILY Inpatient Panel DAILY 05/20/17 04:00 Complete Blood Count DAILY Inpatient Panel DAILY 05/21/17 04:00 Complete Blood Count DAILY Inpatient Panel DAILY 05/22/17 04:00 Complete Blood Count DAILY Inpatient Panel DAILY 05/23/17 04:00 Complete Blood Count DAILY Inpatient Panel DAILY 05/24/17 04:00 Complete Blood Count DAILY Inpatient Panel DAILY 05/25/17 04:00 Complete Blood Count DAILY Inpatient Panel DAILY Transfer Discharge Sum: A/P - Problem Maintenance (1) Neutropenia Status: Chronic Qualifiers: Neutropenia type: unspecified Qualified Code(s): D70.9 - Neutropenia, unspecified - Plan Disposition: [facility] Quality Measure Queries - VTE Deep Vein Thrombosis/Pulmonary Embolism Present on Admission: No
--- NOTE | 2017-05-20 12:48 | Surgical Pathology Report ---
HISTOLOGY SPECIMEN MICROSCOPIC DIAGNOSIS SPECIMEN A - TERMINAL ILEUM, BIOPSY: -- NO DIAGNOSTIC ALTERATIONS. SPECIMEN B - COLON, RANDOM, BIOPSY: -- NO DIAGNOSTIC ALTERATIONS. -- NO ARCHITECTURAL DISTORTION, ACTIVE COLITIS, GRANULOMAS OR MICROSCOPIC COLITIS IDENTIFIED. SPECIMEN C - COLON, TRANSVERSE, POLYPECTOMY: -- TUBULAR ADENOMA. SPECIMEN D - COLON, SIGMOID, POLYPECTOMY: -- TUBULAR ADENOMA. SPECIMEN E - DUODENUM, BIOPSY: -- DUODENAL MUCOSA WITH FOCAL GASTRIC METAPLASIA. -- NO VILLOUS BLUNTING OR INCREASE IN INTRAEPITHELIAL LYMPHOCYTES. -- GASTRIC METAPLASIA CONFIRMED ON ALCIAN BLUE/PAS STAIN (ADEQUATE TECHNICAL CONTROL). (DMT:adj) CLINICAL HISTORY Diarrhea; body aches; malaise. PROCEDURAL IMPRESSION Microscopic colitis (?); polyps; celiac (?); H. pylori (?); Schatzki's ring. GROSS DESCRIPTION Specimen A: Received in formalin labeled terminal ileum biopsy, are four akins tissue fragments from less than 0.1 to 0.5 cm. Entirely submitted - one cassette. Specimen B: Received in formalin labeled random biopsy, are seven akins tissue fragments 0.3 to 0.5 cm. Entirely submitted - one cassette. Specimen C: Received in formalin labeled transverse polyp, is a 0.4 cm akins tissue fragment. Entirely submitted - one cassette. Specimen D: Received in formalin labeled sigmoid polyp, is a 0.4 cm akins tissue fragment. Entirely submitted - one cassette. (SCB:adj) Specimen E: Received in formalin labeled duodenum biopsy, are seven brown-akins tissue fragments less than 0.1 to 0.5 cm. Totally submitted - one cassette. (GAS:sln) Electronically Signed by: Duke Alcantar M.D.
--- NOTE | 2017-05-24 15:49 | Colonoscopy Procedure Note ---
Colonoscopy Procedure Notes - Procedure Information Patient information: Note initiated : 05/24/17 at 3:46 pm Service Date: 05/17/17 Patient: Alice Maldonado 61 y/o F admitted on 05/17/17 for Body Aches, Diarrhea and Malaise. Pre-op diagnosis general: Diarrhea. Abnormal CT. Post-op diagnosis general: Diarrhea. Query microscopic colitis. Colonic polyps. False positive CT. Procedure narrative: The procedure, alternatives and risks were discussed with the patient and the patient's questions were answered. With intravenous sedation, the Olympus colonoscope was introduced into the rectum and advanced to the cecum. Ileocecal valve was identified, and intubated. Special effort was made to examine as much of the terminal ileum as possible. At least 30 to 40 cm of the terminal ileum were examined and were normal. Biopsy was taken from the ileal mucosa for histological examination. Random colon biopsies were taken throughout the colon to assess for microscopic colitis. The colon otherwise appeared normal. Colonic polyps were seen in the transverse and sigmoid colon; polyps were removed with a snare. They were retrieved for histological examination. Diverticula appear uncomplicated. Assessment: Diarrhea. Query microscopic colitis. Colonic polyps. False positive CT. Proceed with EGD.
--- NOTE | 2017-05-24 15:51 | EGD Procedure Note ---
EGD Procedure Notes - Procedure Information Patient information: Note initiated : 05/24/17 at 3:49 pm Service Date: 05/17/17 Patient: Alice Maldonado 61 y/o F admitted on 05/17/17 for Body Aches, Diarrhea and Malaise. Pre-op diagnosis general: Diarrhea. Esophageal obstruction. Post-Op Diagnosis general: Lap band in place. No complications. Schatzki's ring. Procedure Narrative: The procedure, alternatives and risks were discussed with the patient and the patient's questions were answered. With intravenous sedation, the Olympus video endoscope was introduced into the esophagus. The esophagus, stomach, and duodenum were examined sequentially. The esophagus was ectatic and fluid filled. At the esophagogastric junction, there was a Schatzki's ring narrowing the lumen significantly. A sliding hiatal hernia was seen. Lap band was in place without any complications. The gastric mucosa, antrum, pyloric ring, and duodenum appeared normal. Antral biopsy was taken for SOPHIA test. Small bowel biopsies were taken to check for malabsorption. A guidewire was inserted into the scope. The scope was then withdrawn, leaving the guidewire in place. The esophagus was dilated with an Monegasque bougie 51 Hebrew. Assessment: Lap band in place. No complications. Schatzki's ring. Query celiac or H. pylori.
== END 2017-05-18 18:21 | disposition short-term general hospital (02) | DRG 810 ==
LOC: ED 21:39 → MEDSUR 05-17 02:59
PROVIDERS: ADMIT Internal Medicine; ATTEND Internal Medicine